=== PATIENT | male | born 1985 | race Caucasian/White ===

== ENCOUNTER 2018-04-18 03:41 | Emergency (ER) | payer BC, OTHER ==
[2018-04-18 04:32] VITALS: BP 127/78; PULSE 84; TEMP 98.6; BMI 23.0
[2018-04-18] MEDS ORDERED: METHOCARBAMOL 500 MG TABLET PO ONE (04:48)
[2018-04-18] MEDS ORDERED: KETOROLAC TROMETHAMINE 30 MG/1 ML VIAL IM ONE (04:48)
--- NOTE | 2018-04-18 04:48 | PDOC ---
History of Present Illness - General Chief Complaint: Back Pain Stated Complaint: UPPER BACK PAIN Time Seen by Provider: 04/18/18 04:24 History Source: Patient - History of Present Illness Initial Comments: 04/18/18 04:50 32 year old male with b/l upper back pain radiating across chest. patient reports pain worsening over the last two days. reports with deep breaths. patient reports that he was moving heavy boxes 1 week ago. denies recent travel , prolonged sitting. no pmhx. no midline pain Past History - Past Medical History Allergies/Adverse Reactions: Allergies Allergy/AdvReac Type Severity Reaction Status Date / Time No Known Allergies Allergy Verified 04/18/18 04:32 Home Medications: Ambulatory Orders Ibuprofen 600 mg PO QID #20 tablet 04/18/18 Methocarbamol [Robaxin -] 500 mg PO BID PRN #10 tablet 04/18/18 - Suicide/Smoking/Psychosocial Hx Smoking History: Never smoked Have you smoked in the past 12 months: No Information on smoking cessation initiated: No Hx Alcohol Use: No Drug/Substance Use Hx: No Substance Use Type: None Review of Systems - Review of Systems Able to Perform ROS?: Yes Is the patient limited Cam[place]onian proficient: No Constitutional: No: Symptoms Reported, See HPI, Chills, Diaphoresis, Fever, Loss of Appetite, Malaise, Night Sweats, Weakness, Weight Stable, Unintentional Wgt. Loss, Unexplained wgt Loss, Other Respiratory: No: Symptoms reported, See HPI, Cough, Orthopnea, Shortness of Breath, SOB with Exertion, SOB at Rest, Stridor, Wheezing, Productive cough, Hemoptysis, Other Cardiac (ROS): No: Symptoms Reported, See HPI, Chest Pain, Edema, Irregular Heart Rate, Lightheadedness, Palpitations, Syncope, Chest Tightness, Other Integumentary: Yes: Other (back pain) Neurological: No: Symptoms reported, See HPI, Headache, Numbness, Paresthesia, Pre-Existing Deficit, Seizure, Tingling, Tremors, Weakness, Unsteady Gait, Ataxia, Dizziness, Other *Physical Exam - Vital Signs Last Vital Signs Temp Pulse Resp BP Pulse Ox 98.6 F 84 19 127/78 100 04/18/18 03:41 04/18/18 03:41 04/18/18 03:41 04/18/18 03:41 04/18/18 03:41 - Physical Exam General Appearance: Yes: Appropriately Dressed Respiratory/Chest: positive: Chest Tender (b/l posterior and anterior reproducible chest pain), Lungs Clear, Normal Breath Sounds Cardiovascular: positive: Regular Rhythm, Regular Rate Gastrointestinal/Abdominal: positive: Normal Bowel Sounds, Soft. negative: Tender Musculoskeletal: positive: Normal Inspection Extremity: positive: Normal Capillary Refill, Normal Inspection, Normal Range of Motion Integumentary: positive: Normal Color, Dry, Warm Neurologic: positive: cull grader II-XII NML intact, Fully Oriented, Alert, Normal Mood/ Affect, Normal Response, Motor Strength 5/5 Moderate Sedation - Procedure Monitoring Vital Signs: Procedure Monitoring Vital Signs Temperature 98.6 F 04/18/18 03:41 Pulse Rate 84 04/18/18 03:41 Respiratory Rate 19 04/18/18 03:41 Blood Pressure 127/78 04/18/18 03:41 O2 Sat by Pulse Oximetry (%) 100 04/18/18 03:41 Medical Decision Making - Medical Decision Making back pain P: chest xray pain control 04/18/18 06:30 back pain improved after toradol dose. *DC/Admit/Observation/Transfer Diagnosis at time of Disposition: Musculoskeletal pain Back pain Qualifiers: Back pain location: thoracic back pain Chronicity: acute Back pain laterality: bilateral Qualified Code(s): M54.6 - Pain in thoracic spine - Discharge Dispostion Disposition: HOME Condition at time of disposition: Fair - Prescriptions Prescriptions: Ibuprofen 600 mg PO QID #20 tablet Methocarbamol [Robaxin -] 500 mg PO BID PRN #10 tablet PRN Reason: Muscle Spasms - Referrals - Patient Instructions Printed Discharge Instructions: DI for Musculoskeletal Pain Additional Instructions: apply ice/ heat to the area. take robaxin as prescribed.(this medication can make you sleepy, do not drive or use heavy machinery after taking this) take ibuprofen every 6 hours as prescribed for pain follow up with your doctor as soon as possible. - Post Discharge Activity Forms/Work/School Notes: Back to Work
[2018-04-18] MEDS ORDERED: METHOCARBAMOL 500 MG TABLET ONE (05:35)
[2018-04-18] MEDS ORDERED: KETOROLAC TROMETHAMINE 30 MG/1 ML VIAL ONE (05:35)
== END 2018-04-18 07:20 | disposition home or self-care (01) ==
LOC: JER 03:41
PROC: 3E0233Z Introduction of Anti-inflammatory into Muscle, Percutaneous Approach (ICD-10-PCS; principal; 2018-04-18)
DX: M54.6 Pain in thoracic spine (principal); M79.10 Myalgia, unspecified site
CPT/HCPCS: 71046-TC-FY; 99282-25

== ENCOUNTER 2018-08-05 23:17 | Emergency (ER) | payer BC, OTHER ==
[2018-08-05 23:25] VITALS: BP 119/63; PULSE 82; TEMP 98.1; BMI 23.7
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
== END 2018-08-05 23:56 | disposition home or self-care (01) ==
LOC: JER 23:17
DX: Z77.21 Contact with and (suspected) exposure to potentially hazardous body fluids (principal); Y35.891A Legal intervention involving other specified means, law enforcement official injured, initial encounter; Y93.89 Activity, other specified; Y92.89 Other specified places as the place of occurrence of the external cause; Y99.0 Civilian activity done for income or pay
CPT/HCPCS: 99281-25

== ENCOUNTER 2021-03-17 20:18 | Emergency (ER) | payer OTHER ==
[2021-03-17] MEDS ORDERED: IBUPROFEN 600 MG TABLET (FP) PO ONE ×2 (20:29→20:30)
[2021-03-17 20:30] VITALS: BP 133/74; PULSE 76; TEMP 98.9; BMI 23.0
== END 2021-03-17 20:37 | disposition home or self-care (01) ==
LOC: FER 20:18
DX: S46.212A Strain of muscle, fascia and tendon of other parts of biceps, left arm, initial encounter (principal); Z77.21 Contact with and (suspected) exposure to potentially hazardous body fluids
CPT/HCPCS: 99283-25

== ENCOUNTER 2023-11-12 22:18 | Emergency (ER) | payer OTHER ==
[2023-11-12 22:30] VITALS: BP 119/77; PULSE 96; RESP 16; TEMP 99.3; BMI 23.1
== END 2023-11-12 23:18 | disposition home or self-care (01) ==
LOC: FER 22:18
DX: S86.911A Strain of unspecified muscle(s) and tendon(s) at lower leg level, right leg, initial encounter (principal); S80.02XA Contusion of left knee, initial encounter; W20.8XXA Other cause of strike by thrown, projected or falling object, initial encounter; Y35.811A Legal intervention involving manhandling, law enforcement official injured, initial encounter; Y93.72 Activity, wrestling
CPT/HCPCS: 73562-TC-LT-FY; 99283-25